=== PATIENT | female | born 1950 | race Caucasian/White ===

== ENCOUNTER 2018-04-06 16:29 | Inpatient (IN) | payer MEDICARE, OTHER ==
[~2018-04-06] VITALS: Ht 165.1 cm; Wt 63.0 kg
[~2018-04-06 16:29] MED LIST: AMI25T PO; ASPI-1053 PO; CARV-50 PO; COLL30OI TP; DEXL60CA3 PO; ESCI10TA45 PO; GLIP-192 PO; METF500T PO
[2018-04-06] MEDS ORDERED: normal saline 1000ML IV soln IVB ONE (17:00)
[2018-04-06 17:15] LABS: BASOPHILS % (AUTO) 0.2 % (0-1); EOSINOPHILS % (AUTO) 0 % (0-6); HEMATOCRIT 41.6 % (35.0-45.0); LYMPHOCYTES # (AUTO) 0.7 X10'3 (1.1-4.8); LYMPHOCYTES % (AUTO) 5.5 % (21-51); MEAN CORPUSCULAR HEMOGLOBIN 28.8 PG (27.0-31.0); MEAN CORPUSCULAR HGB CONC 33.7 % (33.0-36.5); MEAN CORPUSCULAR VOLUME 85.6 FL (78-98); MEAN PLATELET VOLUME 6.9 FL (7.4-10.4); MONOCYTES # (AUTO) 0.4 X10'3 (0-0.9); MONOCYTES % (AUTO) 3.2 % (2-12); NEUTROPHILS # (AUTO) 12.2 X10'3 (1.8-7.7); NEUTROPHILS % (AUTO) 91.1 % (42-75); PLATELET COUNT 301 X10'3 (140-440); RED BLOOD COUNT 4.86 X10'6 (4.20-5.60); RED CELL DISTRIBUTION WIDTH 14.2 % (11.5-14.5); WHITE BLOOD COUNT 13.4 X10'3 (4.5-11.0)
[2018-04-06 17:23] LABS: INR 1.1 INR
[2018-04-06 17:29] LABS: ALANINE AMINOTRANSFERASE 33 U/L (12-78); ALBUMIN 3.7 G/DL (3.4-5.0); ALKALINE PHOSPHATASE 75 IU/L (46-116); ANION GAP 12 (8-16); ASPARTATE AMINO TRANSFERASE 18 U/L (10-37); BILIRUBIN,TOTAL 0.5 MG/DL (0.1-1.0); BLOOD UREA NITROGEN 26 MG/DL (7-18); BUN/CREATININE RATIO 26.8 (6.6-38.0); CALCIUM 8.9 MG/DL (8.5-10.1); CHLORIDE 99 MMOL/L (99-107); CREATININE 0.97 MG/DL (0.40-0.90); GLUCOSE 330 MG/DL (70-104); POTASSIUM 3.7 MMOL/L (3.5-5.1); SODIUM 140 MMOL/L (135-145); TOTAL CARBON DIOXIDE 29.2 MMOL/L (24-32); TOTAL PROTEIN 7.3 G/DL (6.4-8.2); eGFR 57 ML/MIN
[2018-04-06 17:57] LABS: CLARITY,URINE CLEAR (Clear); COLOR,URINE STRAW (Yellow); GLUCOSE, URINE >=1000 mg/dl (Neg); KETONES,URINE >=80 mg/dl (Neg); LEUKOCYTE ESTERASE ,URINE NEGATIVE (Neg); NITRITES, URINE NEGATIVE (Neg); OCCULT BLOOD,URINE SMALL (Neg); PH,URINE 5.5 (4.8-8.0); PROTEIN,URINE 100 mg/dl (Neg); UROBILINOGEN,URINE 0.2 E.U/dL (0.2-1.0)
[2018-04-06 18:00] LABS: UA COLLECTION TYPE URINAL
[2018-04-06 18:05] LABS: MUCUS STRANDS FEW /LPF (Neg); SQUAMOUS EPITHELIAL CELL,UR FEW /LPF (FEW)
[2018-04-06 18:06] LABS: RBC,URINE 0-2 /HPF (0-2); WBC,URINE 0-4 /HPF (0-4); YEAST FEW /HPF (NEGATIVE)
[2018-04-06 18:07] LABS: BACTERIA,URINE 1+ /HPF (Neg); COARSE GRANULAR CAST 0-3 /LPF (NEGATIVE); WBC CASTS 0-3 /LPF (NEGATIVE)
[2018-04-06] MEDS ORDERED: ondansetron/PF 4mg/2ml inj IV ONE (20:15)
[2018-04-06] MEDS ORDERED: proCHLORperazine 10 MG/2 ml inj IV ONE (20:15)
[2018-04-06] MEDS ORDERED: ALB0.5UD IH (21:34)
[2018-04-06] MEDS ORDERED: METF500T PO (21:35)
[2018-04-06] MEDS ORDERED: GABA-532 PO (21:35)
[2018-04-06] MEDS ORDERED: PROM25TA14 RC (21:41)
[2018-04-06] MEDS ORDERED: PHE12.5R RC (21:41)
[2018-04-06] MEDS ORDERED: GLIP10TA11 PO (21:42)
[2018-04-06] MEDS ORDERED: ONDA8TAB12 PO (21:43)
[2018-04-06] MEDS ORDERED: SITA100T15 PO (21:47)
[2018-04-06] MEDS ORDERED: SEMA1PEN SUBCUT (21:47)
[2018-04-06] MEDS ORDERED: ondansetron/PF 4mg/2ml inj IV PRN (22:50)
[2018-04-06] MEDS ORDERED: acetaminophen 325mg tablet PO PRN (22:50)
[2018-04-06] MEDS ORDERED: glucagon, human recombinant 1mg kit SUBCUT PRN (22:55)
[2018-04-06] MEDS ORDERED: insulin Lispro (HumaLOG) vial - multi-dose SQ SCH (22:55)
[2018-04-06] MEDS ORDERED: albuterol 2.5 MG/3 ML nebule NEB PRN (22:55)
[2018-04-06] MEDS ORDERED: MESSAGE TO PHARMACY PO ONE (22:55)
[2018-04-06] MEDS ORDERED: dextrose ORAL solution 15 GM/59 ML bottle PO PRN ×2 (22:55)
[2018-04-06] MEDS ORDERED: dextrose 50%-water 50ml dispensing syringe IV PRN ×2 (22:55)
[2018-04-06 23:11] LABS: HEMOGLOBIN A1C 8.6 % (4.5-6.2)
[2018-04-06 23:12] LABS: GLUCOSE 157 MG/DL (70-104)
[2018-04-06] MEDS: normal saline 1000ml 1,000 ML IV SCH (23:18)
[2018-04-06] MEDS ORDERED: mag hydrox/Alum hydrox/simeth 30ml oral suspension PO ONE (23:25)
[2018-04-06] MEDS ORDERED: pantoprazole 40 MG vial IV ONE (23:25)
[2018-04-07 00:05] VITALS: BP 127/75
[2018-04-07 05:53] LABS: BASOPHILS % (AUTO) 0.3 % (0-1); EOSINOPHILS % (AUTO) 0.1 % (0-6); HEMATOCRIT 35.1 % (35.0-45.0); HEMOGLOBIN 11.8 g/dl (12.0-16.0); LYMPHOCYTES # (AUTO) 1.9 X10'3 (1.1-4.8); LYMPHOCYTES % (AUTO) 20.6 % (21-51); MEAN CORPUSCULAR HGB CONC 33.6 % (33.0-36.5); MEAN CORPUSCULAR VOLUME 86.5 FL (78-98); MEAN PLATELET VOLUME 7.4 FL (7.4-10.4); MONOCYTES # (AUTO) 0.7 X10'3 (0-0.9); NEUTROPHILS # (AUTO) 6.7 X10'3 (1.8-7.7); PLATELET COUNT 284 X10'3 (140-440); RED BLOOD COUNT 4.05 X10'6 (4.20-5.60); RED CELL DISTRIBUTION WIDTH 14.1 % (11.5-14.5); WHITE BLOOD COUNT 9.3 X10'3 (4.5-11.0)
[2018-04-07 06:07] LABS: ALANINE AMINOTRANSFERASE 25 U/L (12-78); ALBUMIN 3.1 G/DL (3.4-5.0); ALKALINE PHOSPHATASE 58 IU/L (46-116); ANION GAP 11 (8-16); ASPARTATE AMINO TRANSFERASE 13 U/L (10-37); BILIRUBIN,TOTAL 0.5 MG/DL (0.1-1.0); BLOOD UREA NITROGEN 17 MG/DL (7-18); BUN/CREATININE RATIO 25.8 (6.6-38.0); CALCIUM 7.5 MG/DL (8.5-10.1); CHLORIDE 102 MMOL/L (99-107); CREATININE 0.66 MG/DL (0.40-0.90); GLUCOSE 135 MG/DL (70-104); SODIUM 141 MMOL/L (135-145); TOTAL CARBON DIOXIDE 28.1 MMOL/L (24-32); TOTAL PROTEIN 6.2 G/DL (6.4-8.2); eGFR 89 ML/MIN
[2018-04-07] MEDS ORDERED: potassium Cl 20 mEq SR tablet PO PRN ×2 (06:35)
[2018-04-07] MEDS ORDERED: potassium Cl 40MEQ/NS 500ml 500 ML IV PRN (06:35)
[2018-04-07 07:15] VITALS: BP 146/86
[2018-04-07] MEDS: aspirin 81mg tab.chew PO SCH ×2 (07:39→21:22)
[2018-04-07] MEDS: carVEDilol 12.5mg tablet PO SCH ×2 (07:39→21:22)
[2018-04-07] MEDS: gabapentin 300mg capsule PO SCH ×3 (07:39→21:22)
[2018-04-07] MEDS: heparin, porcine 5000 units/ml vial SQ SCH ×2 (07:40→21:19)
[2018-04-07] MEDS: potassium Cl 40MEQ/NS 500ml 500 ML IV PRN ×2 (08:09→12:13)
[2018-04-07] MEDS: normal saline 1000ml 1,000 ML IV SCH ×2 (08:48→17:02)
[2018-04-07 11:49] VITALS: BP 134/80
[2018-04-07 20:00] VITALS: BP 129/80
[2018-04-07] MEDS ORDERED: insulin glargine (Lantus) pen - multi-dose SQ SCH (21:00)
[2018-04-07] MEDS ORDERED: temazepam 15mg capsule PO PRN (23:45)
[2018-04-08] MEDS: normal saline 1000ml 1,000 ML IV SCH (01:45)
[2018-04-08 02:45] VITALS: BP 148/94
[2018-04-08 04:43] LABS: BASOPHILS % (AUTO) 0.6 % (0-1); EOSINOPHILS # (AUTO) 0.1 X10'3 (0-0.9); EOSINOPHILS % (AUTO) 1.2 % (0-6); HEMATOCRIT 34.5 % (35.0-45.0); HEMOGLOBIN 11.4 g/dl (12.0-16.0); LYMPHOCYTES # (AUTO) 2.5 X10'3 (1.1-4.8); LYMPHOCYTES % (AUTO) 37.3 % (21-51); MEAN CORPUSCULAR HEMOGLOBIN 28.4 PG (27.0-31.0); MEAN CORPUSCULAR HGB CONC 33.1 % (33.0-36.5); MEAN CORPUSCULAR VOLUME 85.8 FL (78-98); MEAN PLATELET VOLUME 7.5 FL (7.4-10.4); MONOCYTES # (AUTO) 0.4 X10'3 (0-0.9); MONOCYTES % (AUTO) 6.8 % (2-12); NEUTROPHILS # (AUTO) 3.6 X10'3 (1.8-7.7); NEUTROPHILS % (AUTO) 54.1 % (42-75); PLATELET COUNT 255 X10'3 (140-440); RED BLOOD COUNT 4.02 X10'6 (4.20-5.60); RED CELL DISTRIBUTION WIDTH 14.2 % (11.5-14.5); WHITE BLOOD COUNT 6.6 X10'3 (4.5-11.0)
[2018-04-08 05:00] LABS: ALANINE AMINOTRANSFERASE 26 U/L (12-78); ALBUMIN/GLOBULIN RATIO 0.9 (1.1-1.5); ALKALINE PHOSPHATASE 58 IU/L (46-116); ANION GAP 6 (8-16); ASPARTATE AMINO TRANSFERASE 21 U/L (10-37); BILIRUBIN,TOTAL 0.4 MG/DL (0.1-1.0); BLOOD UREA NITROGEN 10 MG/DL (7-18); BUN/CREATININE RATIO 19.2 (6.6-38.0); CALCIUM 7.8 MG/DL (8.5-10.1); CHLORIDE 104 MMOL/L (99-107); CREATININE 0.52 MG/DL (0.40-0.90); GLUCOSE 150 MG/DL (70-104); POTASSIUM 3.5 MMOL/L (3.5-5.1); SODIUM 137 MMOL/L (135-145); TOTAL CARBON DIOXIDE 26.7 MMOL/L (24-32); TOTAL PROTEIN 6.2 G/DL (6.4-8.2); eGFR > 90 ML/MIN
[2018-04-08 07:00] VITALS: BP 175/104
[2018-04-08] MEDS: carVEDilol 12.5mg tablet PO SCH (08:04)
[2018-04-08] MEDS: gabapentin 300mg capsule PO SCH ×2 (08:04→13:06)
[2018-04-08] MEDS: heparin, porcine 5000 units/ml vial SQ SCH (08:04)
[2018-04-08] MEDS: aspirin 81mg tab.chew PO SCH (08:04)
[2018-04-08 09:00] VITALS: BP 124/89
[2018-04-08 11:00] VITALS: BP 138/89
[2018-04-08] MEDS ORDERED: mag hydrox/Alum hydrox/simeth 30ml oral suspension PO ONE (17:45)
== END 2018-04-08 19:15 | disposition home or self-care (01) | DRG 392 ==
LOC: ER 16:29 → ED HOLD 22:48 → EDBEDREQ 23:25 → SUR 3N 23:59
PROVIDERS: ADMIT Internal Medicine; ATTEND Internal Medicine
DX: R11.2 Nausea with vomiting, unspecified (principal); K21.9 Gastro-esophageal reflux disease without esophagitis; E11.9 Type 2 diabetes mellitus without complications; J44.9 Chronic obstructive pulmonary disease, unspecified; I10 Essential (primary) hypertension; E87.6 Hypokalemia; T50.995A Adverse effect of other drugs, medicaments and biological substances, initial encounter; R00.0 Tachycardia, unspecified; F32.9 Major depressive disorder, single episode, unspecified; Z79.82 Long term (current) use of aspirin; Z79.84 Long term (current) use of oral hypoglycemic drugs; Z79.899 Other long term (current) drug therapy; Z85.038 Personal history of other malignant neoplasm of large intestine; Z85.3 Personal history of malignant neoplasm of breast; Z87.891 Personal history of nicotine dependence; Z82.49 Family history of ischemic heart disease and other diseases of the circulatory system; Z83.3 Family history of diabetes mellitus; Y92.89 Other specified places as the place of occurrence of the external cause
CPT/HCPCS: 36415; 71045; 80053; 81001; 82947; 82948; 83036; 83605; 84132; 84484; 85025; 85610; 87070; 93005; 96361; 96374; 96375; 99285; C9113; J0780; J1644; J1815; J2405; J3480; J7030

== ENCOUNTER 2018-04-11 02:56 | Inpatient (IN) | payer MEDICARE, OTHER ==
[~2018-04-11] VITALS: Ht 165.1 cm; Wt 56.8 kg
[~2018-04-11 02:56] MED LIST changes: +ALB0.5UD IH; -COLL30OI TP; -DEXL60CA3 PO; -ESCI10TA45 PO; +GABA-532 PO; -GLIP-192 PO; +GLIP10TA11 PO; +ONDA8TAB12 PO; +PHE12.5R RC; +SITA100T15 PO
[2018-04-11 03:25] LABS: BASOPHILS % (AUTO) 0.3 % (0-1); EOSINOPHILS % (AUTO) 0.1 % (0-6); HEMATOCRIT 35.7 % (35.0-45.0); LYMPHOCYTES # (AUTO) 1.3 X10'3 (1.1-4.8); LYMPHOCYTES % (AUTO) 13.8 % (21-51); MEAN CORPUSCULAR HEMOGLOBIN 28.8 PG (27.0-31.0); MEAN CORPUSCULAR HGB CONC 33.6 % (33.0-36.5); MEAN CORPUSCULAR VOLUME 85.7 FL (78-98); MEAN PLATELET VOLUME 6.9 FL (7.4-10.4); MONOCYTES # (AUTO) 0.5 X10'3 (0-0.9); MONOCYTES % (AUTO) 5.3 % (2-12); NEUTROPHILS # (AUTO) 7.7 X10'3 (1.8-7.7); NEUTROPHILS % (AUTO) 80.5 % (42-75); PLATELET COUNT 319 X10'3 (140-440); RED BLOOD COUNT 4.16 X10'6 (4.20-5.60); WHITE BLOOD COUNT 9.6 X10'3 (4.5-11.0)
[2018-04-11 03:42] LABS: COLOR,URINE YELLOW (Yellow); GLUCOSE, URINE 250 mg/dl (Neg); KETONES,URINE >=80 mg/dl (Neg); LEUKOCYTE ESTERASE ,URINE NEGATIVE (Neg); NITRITES, URINE NEGATIVE (Neg); OCCULT BLOOD,URINE TRACE-INTACT (Neg); PROTEIN,URINE 100 mg/dl (Neg); UROBILINOGEN,URINE 0.2 E.U/dL (0.2-1.0)
[2018-04-11 03:52] LABS: INR 1.3 INR; PARTIAL THROMBOPLASTIN TIME 28 SECONDS (22-32); PROTHROMBIN TIME 13.4 SECONDS (9.0-12.0)
[2018-04-11 03:55] LABS: ALANINE AMINOTRANSFERASE 30 U/L (12-78); ALBUMIN 2.5 G/DL (3.4-5.0); ALKALINE PHOSPHATASE 48 IU/L (46-116); ANION GAP 17 (8-16); ASPARTATE AMINO TRANSFERASE 20 U/L (10-37); BILIRUBIN,TOTAL 0.5 MG/DL (0.1-1.0); BLOOD UREA NITROGEN 26 MG/DL (7-18); BUN/CREATININE RATIO 42.6 (6.6-38.0); CHLORIDE 106 MMOL/L (99-107); CREATININE 0.61 MG/DL (0.40-0.90); GLUCOSE 234 MG/DL (70-104); SODIUM 143 MMOL/L (135-145); TOTAL CARBON DIOXIDE 19.7 MMOL/L (24-32); TOTAL PROTEIN 5.1 G/DL (6.4-8.2); eGFR > 90 ML/MIN
[2018-04-11 03:55] LABS: CLARITY,URINE SLIGHTLY CLOUDY (Clear); UA COLLECTION TYPE CLN CATCH MIDSTREAM
[2018-04-11 03:56] LABS: BACTERIA,URINE FEW /HPF (Neg); RBC,URINE 0-2 /HPF (0-2); SQUAMOUS EPITHELIAL CELL,UR MODERATE /LPF (FEW)
[2018-04-11 04:02] LABS: POTASSIUM 2.1 MMOL/L (3.5-5.1)
[2018-04-11] MEDS ORDERED: potassium 20mEq/D5LR 1000ml bag IV STA (04:04)
[2018-04-11] MEDS ORDERED: ondansetron/PF 4mg/2ml inj IV ONE (04:05)
[2018-04-11] MEDS ORDERED: potassium Cl 20 mEq SR tablet PO STA (04:16)
[2018-04-11] MEDS ORDERED: normal saline 1000ML IV soln IVB ONE (04:20)
[2018-04-11] MEDS ORDERED: insulin regular, human inj. 100 UNITS in normal saline 100ml IV soln 100 ML IV SCH ×2 (04:35)
[2018-04-11] MEDS ORDERED: dextrose 50%-water 50ml dispensing syringe IV PRN ×5 (04:35→07:55)
[2018-04-11] MEDS: potassium 10mEq/100ml NS w/LIDOcaine (10mg/bag) IV SCH ×2 (04:36→05:29)
[2018-04-11 04:49] LABS: LIPASE 64 U/L (73-393); PHOSPHORUS 2.3 MG/DL (2.3-4.5)
[2018-04-11 04:53] LABS: MAGNESIUM 0.8 MG/DL (1.5-2.4)
[2018-04-11] MEDS ORDERED: magnesium 1gm/100ml D5W IVPB 100 ML IV PRN (04:55)
[2018-04-11] MEDS ORDERED: magnesium 4gm in 100ml NS 100 ML IV PRN ×2 (04:55→05:05)
[2018-04-11] MEDS ORDERED: potassium Cl 20 mEq SR tablet PO PRN ×4 (04:55→05:05)
[2018-04-11] MEDS ORDERED: potassium Cl 40MEQ/NS 500ml 500 ML IV PRN ×4 (04:55→05:05)
[2018-04-11] MEDS ORDERED: HYDROcodone/acetaminophen 5mg/325mg tablet PO PRN (05:05)
[2018-04-11] MEDS ORDERED: metoclopramide 5 mg/ml inj IV PRN (05:05)
[2018-04-11] MEDS ORDERED: acetaminophen 325mg tablet PO PRN ×2 (05:05)
[2018-04-11] MEDS ORDERED: ondansetron/PF 4mg/2ml inj IV PRN (05:05)
[2018-04-11] MEDS ORDERED: magnesium hydroxide 30ml (MOM) UD suspension PO PRN (05:05)
[2018-04-11] MEDS ORDERED: acetaminophen 650mg rectal suppository RC PRN (05:05)
[2018-04-11] MEDS ORDERED: HYDROcodone/acetaminophen 10/325mg tab PO PRN (05:05)
[2018-04-11] MEDS ORDERED: diphenhydrAMINE 50 mg/ml inj IV PRN (05:05)
[2018-04-11] MEDS ORDERED: bisacodyl 10mg suppository rectal RC PRN (05:05)
[2018-04-11] MEDS ORDERED: magnesium 1gm/100ml D5W IVPB 50 ML IV PRN (05:05)
[2018-04-11] MEDS ORDERED: magnesium Cl slow-release 64mg tablet PO PRN (05:05)
[2018-04-11] MEDS ORDERED: morphine 4 MG/ML inj SYRINge IV PRN ×2 (05:05)
[2018-04-11] MEDS ORDERED: diphenhydrAMINE 25mg capsule PO PRN (05:05)
[2018-04-11] MEDS ORDERED: mag hydrox/Alum hydrox/simeth 30ml oral suspension PO PRN (05:05)
[2018-04-11] MEDS ORDERED: HYDROmorphone inj. 0.5 MG/0.5 ML DISP.SYRIN IV PRN ×2 (05:05)
[2018-04-11] MEDS ORDERED: D5W IV ONE (05:08)
[2018-04-11] MEDS ORDERED: MAGNESIUM 1 GM/100 ML IV ONE (05:08)
[2018-04-11] MEDS ORDERED: MESSAGE TO PHARMACY PO ONE ×2 (05:10→07:55)
[2018-04-11] MEDS ORDERED: insulin Lispro (HumaLOG) vial - multi-dose SQ SCH ×2 (05:10→09:00)
[2018-04-11] MEDS ORDERED: glucagon, human recombinant 1mg kit SUBCUT PRN ×2 (05:10→07:55)
[2018-04-11] MEDS ORDERED: dextrose ORAL solution 15 GM/59 ML bottle PO PRN ×4 (05:10→07:55)
[2018-04-11 05:11] LABS: ABG BASE EXCESS -1.2 mmol/L (-2.0-3.0); ABG HCO3 23.2 mmol/L (22.0-26.0); ABG OXYGEN SATURATION 93.8 % (95-98); ABG PCO2 (T) 37.2 mmHg (32.0-45.0); ABG PO2 (T) 69.6 mmHg (83-108); ALLEN'S TEST Positive; FCOHb 1.3 % (0.5-1.5); FMetHb 0.3 % (0.3-1.12); FO2Hb 92.3 % (94-100); PATIENT TEMPERATURE 36.6; TOTAL HEMOGLOBIN 13.8 G/dl (12.0-16.0)
[2018-04-11] MEDS: magnesium 1gm/100ml D5W IVPB 100 ML IV SCH ×2 (05:29→06:24)
[2018-04-11 06:00] VITALS: BP 176/116
[2018-04-11] MEDS ORDERED: albuterol 2.5 MG/3 ML nebule NEB PRN (06:00)
[2018-04-11 06:32] LABS: CREATINE KINASE 22 U/L (26-192)
[2018-04-11] MEDS: aspirin 81mg tab.chew PO SCH ×2 (07:22→19:30)
[2018-04-11] MEDS: docusate sod 100mg capsule PO SCH ×2 (07:22→19:31)
[2018-04-11] MEDS: carVEDilol 12.5mg tablet PO SCH ×2 (07:22→19:31)
[2018-04-11] MEDS: gabapentin 300mg capsule PO SCH ×3 (07:23→21:16)
[2018-04-11] MEDS: heparin, porcine 5000 units/ml vial SQ SCH ×2 (07:23→19:32)
[2018-04-11] MEDS: amitriptyline 25mg tablet PO SCH (07:23)
[2018-04-11 07:41] LABS: OSMOLALITY 298 MOSM/K (280-300)
[2018-04-11] MEDS ORDERED: hydrALAZINE 20mg/ml inj. IV PRN (07:55)
[2018-04-11] MEDS: K and/or MAG REPLACEMENT MC SCH (08:00)
[2018-04-11] MEDS ORDERED: proMETHazine 25mg rectal suppository RC PRN (08:00)
[2018-04-11] MEDS: potassium cl 20mEq in 1/2 NS 1,000 ML IV SCH ×2 (08:12→14:14)
[2018-04-11] MEDS: CefTRIAXone/D5W-Rocephin 1gm 50 ML IV SCH (08:16)
[2018-04-11] MEDS: pantoprazole 40 MG vial IV SCH (08:17)
[2018-04-11 08:38] LABS: ALANINE AMINOTRANSFERASE 39 U/L (12-78); ALBUMIN 3.6 G/DL (3.4-5.0); ALKALINE PHOSPHATASE 73 IU/L (46-116); ANION GAP 15 (8-16); ASPARTATE AMINO TRANSFERASE 22 U/L (10-37); BILIRUBIN,TOTAL 0.6 MG/DL (0.1-1.0); BLOOD UREA NITROGEN 26 MG/DL (7-18); BUN/CREATININE RATIO 32.1 (6.6-38.0); CALCIUM 9.1 MG/DL (8.5-10.1); CHLORIDE 95 MMOL/L (99-107); CREATININE 0.81 MG/DL (0.40-0.90); GLUCOSE 305 MG/DL (70-104); POTASSIUM 3.6 MMOL/L (3.5-5.1); SODIUM 135 MMOL/L (135-145); TOTAL PROTEIN 7.1 G/DL (6.4-8.2); eGFR 70 ML/MIN
[2018-04-11 09:19] LABS: HEMOGLOBIN A1C 8.4 % (4.5-6.2)
[2018-04-11 09:50] LABS: MAGNESIUM 2.1 MG/DL (1.5-2.4)
[2018-04-11] MEDS: insulin Lispro (HumaLOG) vial - multi-dose SQ SCH ×2 (10:28→19:27)
[2018-04-11 11:00] VITALS: BP 105/78
[2018-04-11 15:00] VITALS: BP 139/85
[2018-04-11 19:00] VITALS: BP 146/102
[2018-04-11] MEDS ORDERED: temazepam 15mg capsule PO PRN (21:00)
[2018-04-11] MEDS: insulin glargine (Lantus) pen - multi-dose SQ SCH (21:21)
[2018-04-11 23:00] VITALS: BP 116/71
[2018-04-12] MEDS: potassium cl 20mEq in 1/2 NS 1,000 ML IV SCH (01:01)
[2018-04-12 03:00] VITALS: BP 127/75
[2018-04-12 05:11] LABS: BASOPHILS % (AUTO) 0.4 % (0-1); EOSINOPHILS % (AUTO) 0.4 % (0-6); HEMATOCRIT 35.1 % (35.0-45.0); HEMOGLOBIN 11.4 g/dl (12.0-16.0); LYMPHOCYTES # (AUTO) 2.2 X10'3 (1.1-4.8); LYMPHOCYTES % (AUTO) 26.5 % (21-51); MEAN CORPUSCULAR HEMOGLOBIN 28.2 PG (27.0-31.0); MEAN CORPUSCULAR HGB CONC 32.7 % (33.0-36.5); MEAN CORPUSCULAR VOLUME 86.4 FL (78-98); MEAN PLATELET VOLUME 7.4 FL (7.4-10.4); MONOCYTES # (AUTO) 0.6 X10'3 (0-0.9); MONOCYTES % (AUTO) 7.4 % (2-12); NEUTROPHILS # (AUTO) 5.5 X10'3 (1.8-7.7); NEUTROPHILS % (AUTO) 65.3 % (42-75); PLATELET COUNT 291 X10'3 (140-440); RED BLOOD COUNT 4.06 X10'6 (4.20-5.60); RED CELL DISTRIBUTION WIDTH 14.4 % (11.5-14.5); WHITE BLOOD COUNT 8.4 X10'3 (4.5-11.0)
[2018-04-12 05:40] LABS: ALANINE AMINOTRANSFERASE 24 U/L (12-78); ALKALINE PHOSPHATASE 58 IU/L (46-116); ANION GAP 8 (8-16); ASPARTATE AMINO TRANSFERASE 11 U/L (10-37); BILIRUBIN,TOTAL 0.5 MG/DL (0.1-1.0); BLOOD UREA NITROGEN 13 MG/DL (7-18); CALCIUM 8.4 MG/DL (8.5-10.1); CHLORIDE 103 MMOL/L (99-107); CREATININE 0.59 MG/DL (0.40-0.90); GLUCOSE 138 MG/DL (70-104); MAGNESIUM 1.3 MG/DL (1.5-2.4); POTASSIUM 3.6 MMOL/L (3.5-5.1); SODIUM 137 MMOL/L (135-145); TOTAL CARBON DIOXIDE 25.7 MMOL/L (24-32); TOTAL PROTEIN 5.9 G/DL (6.4-8.2); eGFR > 90 ML/MIN
[2018-04-12] MEDS: K and/or MAG REPLACEMENT MC SCH (06:58)
[2018-04-12] MEDS: pantoprazole 40 MG vial IV SCH (07:09)
[2018-04-12] MEDS: CefTRIAXone/D5W-Rocephin 1gm 50 ML IV SCH (07:09)
[2018-04-12] MEDS: gabapentin 300mg capsule PO SCH ×3 (07:54→20:22)
[2018-04-12] MEDS: aspirin 81mg tab.chew PO SCH ×2 (07:54→20:22)
[2018-04-12] MEDS: docusate sod 100mg capsule PO SCH ×2 (07:54→20:22)
[2018-04-12] MEDS: amitriptyline 25mg tablet PO SCH (07:55)
[2018-04-12] MEDS: carVEDilol 12.5mg tablet PO SCH ×2 (07:55→20:23)
[2018-04-12] MEDS: heparin, porcine 5000 units/ml vial SQ SCH ×2 (07:57→20:25)
[2018-04-12] MEDS: insulin Lispro (HumaLOG) vial - multi-dose SQ SCH ×3 (08:14→21:42)
[2018-04-12 08:57] VITALS: BP 107/66
[2018-04-12] MEDS: magnesium Cl slow-release 64mg tablet PO PRN (09:20)
[2018-04-12 11:00] VITALS: BP 111/76
[2018-04-12 19:00] VITALS: BP 119/82
[2018-04-12] MEDS: lactobacillus rhamnosus 10,000 MMU CELLS/CAPSULE PO SCH (20:24)
[2018-04-12] MEDS ORDERED: INVOKANA 100 MG TAB PO SCH (21:00)
[2018-04-12] MEDS: insulin glargine (Lantus) pen - multi-dose SQ SCH (21:00)
[2018-04-12 23:00] VITALS: BP 107/77
[2018-04-13 03:00] VITALS: BP 90/62
[2018-04-13 05:23] LABS: BASOPHILS # (AUTO) 0.1 X10'3 (0-0.2); BASOPHILS % (AUTO) 0.8 % (0-1); EOSINOPHILS # (AUTO) 0.1 X10'3 (0-0.9); EOSINOPHILS % (AUTO) 1.7 % (0-6); HEMATOCRIT 35.2 % (35.0-45.0); HEMOGLOBIN 11.7 g/dl (12.0-16.0); LYMPHOCYTES # (AUTO) 3.1 X10'3 (1.1-4.8); LYMPHOCYTES % (AUTO) 44.5 % (21-51); MEAN CORPUSCULAR HEMOGLOBIN 28.8 PG (27.0-31.0); MEAN CORPUSCULAR HGB CONC 33.3 % (33.0-36.5); MEAN CORPUSCULAR VOLUME 86.5 FL (78-98); MEAN PLATELET VOLUME 7.5 FL (7.4-10.4); MONOCYTES # (AUTO) 0.5 X10'3 (0-0.9); MONOCYTES % (AUTO) 7.2 % (2-12); NEUTROPHILS # (AUTO) 3.2 X10'3 (1.8-7.7); NEUTROPHILS % (AUTO) 45.8 % (42-75); PLATELET COUNT 268 X10'3 (140-440); RED BLOOD COUNT 4.07 X10'6 (4.20-5.60); RED CELL DISTRIBUTION WIDTH 14.4 % (11.5-14.5)
[2018-04-13 05:31] LABS: ALANINE AMINOTRANSFERASE 23 U/L (12-78); ALKALINE PHOSPHATASE 59 IU/L (46-116); ANION GAP 8 (8-16); ASPARTATE AMINO TRANSFERASE 13 U/L (10-37); BILIRUBIN,TOTAL 0.4 MG/DL (0.1-1.0); BLOOD UREA NITROGEN 11 MG/DL (7-18); BUN/CREATININE RATIO 16.7 (6.6-38.0); CALCIUM 8.9 MG/DL (8.5-10.1); CHLORIDE 103 MMOL/L (99-107); CREATININE 0.66 MG/DL (0.40-0.90); GLUCOSE 105 MG/DL (70-104); MAGNESIUM 1.4 MG/DL (1.5-2.4); POTASSIUM 3.6 MMOL/L (3.5-5.1); SODIUM 138 MMOL/L (135-145); TOTAL CARBON DIOXIDE 27.5 MMOL/L (24-32); TOTAL PROTEIN 6.1 G/DL (6.4-8.2); eGFR 89 ML/MIN
[2018-04-13 06:00] VITALS: BP 102/62
[2018-04-13] MEDS ORDERED: pantoprazole 40mg Tablet.DR PO SCH (07:30)
[2018-04-13] MEDS: CefTRIAXone/D5W-Rocephin 1gm 50 ML IV SCH (07:34)
[2018-04-13] MEDS: lactobacillus rhamnosus 10,000 MMU CELLS/CAPSULE PO SCH (07:35)
[2018-04-13] MEDS: docusate sod 100mg capsule PO SCH (07:35)
[2018-04-13] MEDS: carVEDilol 12.5mg tablet PO SCH (07:35)
[2018-04-13] MEDS: aspirin 81mg tab.chew PO SCH (07:35)
[2018-04-13] MEDS: gabapentin 300mg capsule PO SCH ×2 (07:35→12:28)
[2018-04-13] MEDS: magnesium Cl slow-release 64mg tablet PO PRN (07:35)
[2018-04-13] MEDS: heparin, porcine 5000 units/ml vial SQ SCH (07:36)
[2018-04-13] MEDS: amitriptyline 25mg tablet PO SCH (07:36)
[2018-04-13] MEDS: K and/or MAG REPLACEMENT MC SCH (08:00)
[2018-04-13] MEDS ORDERED: METO10TA3 PO (10:03)
[2018-04-13] MEDS ORDERED: CANA100T PO (10:03)
[2018-04-13 11:00] VITALS: BP 141/83
[2018-04-16 07:30] LABS: ALDOSTERONE <1.0 ng/dL (0.0-30.0)
== END 2018-04-13 13:09 | disposition home or self-care (01) | DRG 74 ==
LOC: ER 02:56 → ED HOLD 05:01 → PCU 3S 05:51
PROVIDERS: ADMIT Family Medicine; ATTEND Family Medicine
DX: E11.43 Type 2 diabetes mellitus with diabetic autonomic (poly)neuropathy (principal); N39.0 Urinary tract infection, site not specified; I16.0 Hypertensive urgency; E83.42 Hypomagnesemia; E86.0 Dehydration; E87.6 Hypokalemia; I11.0 Hypertensive heart disease with heart failure; I50.9 Heart failure, unspecified; E11.65 Type 2 diabetes mellitus with hyperglycemia; J44.9 Chronic obstructive pulmonary disease, unspecified; K21.9 Gastro-esophageal reflux disease without esophagitis; K31.84 Gastroparesis; F32.9 Major depressive disorder, single episode, unspecified; K59.00 Constipation, unspecified; Z79.899 Other long term (current) drug therapy; Z79.82 Long term (current) use of aspirin; Z85.038 Personal history of other malignant neoplasm of large intestine; Z85.3 Personal history of malignant neoplasm of breast; Z80.9 Family history of malignant neoplasm, unspecified; Z83.3 Family history of diabetes mellitus; Z82.49 Family history of ischemic heart disease and other diseases of the circulatory system
CPT/HCPCS: 36415; 36600; 71045; 80053; 81001; 82088; 82550; 82803; 82948; 83036; 83605; 83690; 83735; 83880; 83930; 84100; 84145; 84244; 84443; 84484; 85018; 85025; 85610; 85730; 87040; 87070; 87077; 87088; 87186; 93005; 94760; 96365; 96375; 99285; C9113; J0360; J0696; J1644; J1815; J2405; J2765; J3480; J7030

== ENCOUNTER 2018-09-13 13:46 | Emergency (ER) | payer MEDICARE, OTHER ==
[~2018-09-13] VITALS: Ht 157.5 cm; Wt 52.0 kg
[~2018-09-13 13:46] MED LIST changes: +CANA100T PO; -GLIP10TA11 PO; -METF500T PO; -ONDA8TAB12 PO; -PHE12.5R RC; -SITA100T15 PO
[2018-09-13] MEDS ORDERED: aspirin 81mg tab.chew PO ONE (14:40)
[2018-09-13 15:06] LABS: BASOPHILS % (AUTO) 0.4 % (0-1); EOSINOPHILS # (AUTO) 0.1 X10'3 (0-0.9); EOSINOPHILS % (AUTO) 0.9 % (0-6); HEMATOCRIT 46.2 % (35.0-45.0); HEMOGLOBIN 15.3 g/dl (12.0-16.0); LYMPHOCYTES # (AUTO) 1.7 X10'3 (1.1-4.8); LYMPHOCYTES % (AUTO) 28.5 % (21-51); MEAN CORPUSCULAR HEMOGLOBIN 28.1 PG (27.0-31.0); MEAN CORPUSCULAR VOLUME 85.2 FL (78-98); MEAN PLATELET VOLUME 7.3 FL (7.4-10.4); MONOCYTES # (AUTO) 0.5 X10'3 (0-0.9); NEUTROPHILS # (AUTO) 3.7 X10'3 (1.8-7.7); NEUTROPHILS % (AUTO) 62.2 % (42-75); PLATELET COUNT 240 X10'3 (140-440); RED BLOOD COUNT 5.42 X10'6 (4.20-5.60); RED CELL DISTRIBUTION WIDTH 14.6 % (11.5-14.5)
[2018-09-13 15:22] LABS: ALANINE AMINOTRANSFERASE 23 U/L (12-78); ALBUMIN 3.4 G/DL (3.4-5.0); ALBUMIN/GLOBULIN RATIO 0.9 (1.1-1.5); ALKALINE PHOSPHATASE 90 IU/L (46-116); ANION GAP 7 (8-16); ASPARTATE AMINO TRANSFERASE 16 U/L (10-37); BILIRUBIN,TOTAL 0.3 MG/DL (0.1-1.0); BLOOD UREA NITROGEN 20 MG/DL (7-18); BUN/CREATININE RATIO 31.3 (6.6-38.0); CALCIUM 9.1 MG/DL (8.5-10.1); CHLORIDE 99 MMOL/L (99-107); CREATININE 0.64 MG/DL (0.40-0.90); GLUCOSE 304 MG/DL (70-104); POTASSIUM 4.1 MMOL/L (3.5-5.1); SODIUM 139 MMOL/L (135-145); eGFR > 90 ML/MIN
[2018-09-13] MEDS ORDERED: iohexol 350MG/ML 100ml bottle IV ONE ×2 (15:47→15:49)
[2018-09-13] MEDS ORDERED: LORazepam 2 mg/ml vial IV ONE (17:30)
[2018-09-13] MEDS ORDERED: ipratropium/albuterol 3ml nebule NEB ONE (17:30)
[2018-09-13] MEDS ORDERED: methylPREDNISolone sod succ 125mg/2ml vial IV ONE (17:30)
[2018-09-13] MEDS ORDERED: DOXY100C43 PO (18:11)
[2018-09-13] MEDS ORDERED: METH4TAB81 PO (18:11)
[2018-09-13 18:43] VITALS: BP 135/90
== END 2018-09-13 18:45 | disposition home or self-care (01) ==
LOC: ER 13:46
DX: J44.1 Chronic obstructive pulmonary disease with (acute) exacerbation (principal); I25.10 Atherosclerotic heart disease of native coronary artery without angina pectoris; I10 Essential (primary) hypertension; K21.9 Gastro-esophageal reflux disease without esophagitis; E11.9 Type 2 diabetes mellitus without complications; Z85.3 Personal history of malignant neoplasm of breast; Z85.038 Personal history of other malignant neoplasm of large intestine; Z98.890 Other specified postprocedural states; Z79.899 Other long term (current) drug therapy; Z79.82 Long term (current) use of aspirin; Z87.891 Personal history of nicotine dependence
CPT/HCPCS: 36415; 71045; 71275; 80053; 83880; 84484; 85025; 93005; 94640; 94760; 96374; 96375; 99284; J2060; J2930; Q9967